=== PATIENT | female | born 1990 | race Caucasian/White ===

== ENCOUNTER 2016-11-20 11:35 | Emergency (ER) | payer BC, MEDICAID, OTHER ==
[2016-11-20] MEDS ORDERED: RABIES IMMUNE GLOBULIN 300 UNITS/2 ML IM STA (13:11)
[2016-11-20] MEDS ORDERED: RABIES VACCINE 2.5 UNIT SYRINGE IM ONE ×2 (13:11→13:32)
[2016-11-20] MEDS ORDERED: RABIES IMMUNE GLOBULIN 300 UNITS/2 ML IM ONE (13:33)
== END 2016-11-20 14:32 | disposition home or self-care (01) ==
DX: Z20.3 Contact with and (suspected) exposure to rabies (principal)